=== PATIENT | female | born 1965 | race Caucasian/White ===

== ENCOUNTER → 2018-03-14 | Outpatient (CLI) | payer OTHER ==
[2015-10-25 00:49] VITALS: BP 194/93
--- NOTE | 2018-03-14 17:03 | KCIC ---
Bilateral digital screening mammograms: Reason for examination: Routine screening. Comparison is made to previous mammographic images available from 05/20/2011. Interpretation was made with the benefit of CAD. The skin and nipples show no abnormalities. No abnormal axillary lymph nodes are seen. The breast parenchyma shows scattered fibroglandular density. (Breast density: Category B.) There is some nodularity to the parenchyma at the 10:00 B position of the right breast and 2:00 B position of the left breast. Further evaluation with coned compression views and ultrasound is recommended. There are no other dominant masses, suspicious calcifications or architectural distortions. Impression: Nodular parenchyma densities at the 10:00 B position of the right breast and 2:00 B position of the left breast. Recommend further evaluation with coned compression views and ultrasound. BI-RADS Category 0: Incomplete. Needs additional imaging evaluation. "Our facility is accredited by the [employer]amm[employer]." This patient's information has been entered into a reminder system for the patient to be notified with the results of her examination and a target date for the next mammogram. Electronically signed by: Aracely Lanier MD (03/14/2018 5:00 PM) [id number]
== END | disposition home or self-care (01) ==
LOC: KCIC MAMMO 12:52
PROVIDERS: ATTEND Family Medicine
DX: Z12.31 Encounter for screening mammogram for malignant neoplasm of breast (principal)
CPT/HCPCS: 77067

== ENCOUNTER → 2018-04-09 | Outpatient (CLI) | payer OTHER ==
[2015-10-25 00:49] VITALS: BP 194/93
--- NOTE | 2018-04-09 11:10 | KCIC ---
Bilateral diagnostic digital mammograms: Reason for examination: Nodular parenchyma on screening mammogram. Comparison is made to mammographic exam dated 03/14/2018. Coned compression views were obtained in CC and oblique views bilaterally. With these additional views, there is some nodularity of normal with prominent may be caused by superimposition of tissues. Further evaluation however with ultrasound will follow. IMPRESSION: No suspicious abnormalities with additional views. Ultrasound to follow. BI-RADS Category 0: Incomplete. Needs additional imaging evaluation. Bilateral breast ultrasound: The upper breast tissue was evaluated bilaterally with attention to the areas of mammographic concern. No discrete cystic or solid nodules or architectural distortions are seen in either breast. IMPRESSION: No focal lesions evident sonographically in either breast. Recommend routine mammographic follow-up. BI-RADS Category 2: Benign. "Our facility is accredited by the [employer] Mammography [employer]." This patient's information has been entered into a reminder system for the patient to be notified with the results of her examination and a target date for the next mammogram. Electronically signed by: Aracely Lanier MD (04/09/2018 11:06 AM) [facility]
== END | disposition home or self-care (01) ==
LOC: KCIC MAMMO 09:59
PROVIDERS: ATTEND Family Medicine
DX: N63.20 Unspecified lump in the left breast, unspecified quadrant (principal); N63.10 Unspecified lump in the right breast, unspecified quadrant; R92.8 Other abnormal and inconclusive findings on diagnostic imaging of breast
CPT/HCPCS: 76641; 77066

== ENCOUNTER → 2019-05-22 | Outpatient (CLI) | payer BC, OTHER ==
[2015-10-25 00:49] VITALS: BP 194/93
--- NOTE | 2019-05-22 11:54 | KCIC ---
Bilateral digital screening mammograms Reason for examination: Routine screening. Comparison is made to previous study dated mammogram March 14, 2018 and diagnostic mammogram and breast ultrasound bilateral April 09, 2018, and priors Routine CC and MLO digital views obtained. Interpretation was made with the benefit of CAD. The skin and nipples show no abnormalities. No abnormal axillary lymph nodes are seen. The breast parenchyma is heterogeneously dense. (Breast density: Category C.) There are no suspicious masses, suspicious calcifications or architectural distortion. Impression: Negative mammogram. Recommend routine screening. ?Your patient's mammogram demonstrates that she has dense breast tissue (breast density category C or D), which could hide abnormalities, and if she has other risk factors for breast cancer that have been identified, she might benefit from supplemental screening tests that may be suggested by you as her ordering physician. Dense breast tissue, in and of itself, is a relatively common condition. Therefore, this information is not provided to cause undue concern, but rather to raise your awareness and to promote discussion with your patient regarding the presence of other risk factors, in addition to dense breast tissue. Your patient's mammography results will be sent to her. BI-RAD Category 1: Negative. "Our facility is accredited by the [employer] Mammography [employer]." This patient's information has been entered into a reminder system for the patient to be notified with the results of her examination and a target date for the next mammogram. Electronically signed by: Seferino Hartmann MD (05/22/2019 11:51 AM) [id number]
== END | disposition home or self-care (01) ==
LOC: KCIC MAMMO 10:42
PROVIDERS: ATTEND Family Medicine
DX: Z12.31 Encounter for screening mammogram for malignant neoplasm of breast (principal)
CPT/HCPCS: 77067